=== PATIENT | male | born 1980 | race Hispanic/Latino ===

== ENCOUNTER 2022-02-26 11:42 | Emergency (ER) | payer OTHER ==
[~2022-02-26] VITALS: Ht 177.8 cm; Wt 99.8 kg
[2022-02-26 12:00] VITALS: BP 118/71
[2022-02-26] MEDS ORDERED: HYDROCODONE/ACETAMINOPHEN 5/325 MG TAB PO SCH (12:00)
[2022-02-26] MEDS ORDERED: NAPR-1180 PO (12:43)
== END 2022-02-26 13:11 | disposition home or self-care (01) ==
LOC: EDH 11:42
DX: S43.102A Unspecified dislocation of left acromioclavicular joint, initial encounter (principal); Z90.49 Acquired absence of other specified parts of digestive tract; Z79.1 Long term (current) use of non-steroidal anti-inflammatories (NSAID); X58.XXXA Exposure to other specified factors, initial encounter; Y93.89 Activity, other specified; Y92.89 Other specified places as the place of occurrence of the external cause; Y99.8 Other external cause status
CPT/HCPCS: 73030